=== PATIENT | male | born 1975 | race Native Hawaiian/Other Pacific Islander ===

== ENCOUNTER 2017-10-09 08:29 | Day surgery (SDC) | payer MEDICAID ==
[~2017-10-09] VITALS: Ht 152.4 cm; Wt 56.8 kg
[~2017-10-09 08:29] MED LIST: AMLO5TAB PO; COL100C PO; COLC0.6T69 PO; CYPR4TAB34 PO; DICL25TA2 PO; DIPH-423 PO; ESCI5TAB PO; HYDR-3686 PO; HYDR-565 PO; LOSA50TA3 PO; METO100T14 PO; ONDA4TAB12 PO; PHO667C PO; PRED5TAB PO; TACR0.5C20 PO
[2017-10-09 08:50] VITALS: BP 139/94
[2017-10-09] MEDS ORDERED: normal saline 1000ml 1,000 ML IV PRN (08:50)
[2017-10-09] MEDS ORDERED: albumin (human) 25% 100 ML IV solution IV PRN (08:50)
[2017-10-09 09:11] VITALS: BP 150/125
[2017-10-09 09:15] VITALS: BP 124/91
[2017-10-09 09:30] VITALS: BP 131/92
[2017-10-09 09:35] VITALS: BP 134/71
== END 2017-10-09 09:55 | disposition home or self-care (01) ==
LOC: SSTAY O 08:29
PROVIDERS: ATTEND Radiology Vascular & Interventional Radiology
DX: R18.8 Other ascites (principal); I12.0 Hypertensive chronic kidney disease with stage 5 chronic kidney disease or end stage renal disease; N18.6 End stage renal disease; Z88.1 Allergy status to other antibiotic agents; Z99.2 Dependence on renal dialysis; Z94.0 Kidney transplant status; Z98.890 Other specified postprocedural states; Z91.048 Other nonmedicinal substance allergy status; Z91.040 Latex allergy status; Z79.899 Other long term (current) drug therapy
CPT/HCPCS: 49083; A6257; J7030

== ENCOUNTER → 2018-05-04 | Outpatient (CLI) | payer MEDICAID ==
[~2018-05-04] MED LIST changes: -CYPR4TAB34 PO; +CYPR4TAB44 PO
== END | disposition home or self-care (01) ==
LOC: CARD DIAG 14:13
PROVIDERS: ATTEND Internal Medicine Cardiovascular Disease
DX: I08.1 Rheumatic disorders of both mitral and tricuspid valves (principal); I11.0 Hypertensive heart disease with heart failure; I50.22 Chronic systolic (congestive) heart failure; I27.20 Pulmonary hypertension, unspecified; Z79.899 Other long term (current) drug therapy; Z87.891 Personal history of nicotine dependence
CPT/HCPCS: 93306

== ENCOUNTER 2018-09-08 02:35 | Emergency (ER) | payer MEDICAID ==
[~2018-09-08] VITALS: Ht 152.4 cm; Wt 66.0 kg
[~2018-09-08 02:35] MED LIST changes: +ALLO100T PO; -AMLO5TAB PO; +BACL10TA PO; +CETI10TA14 PO; +CINA30TA PO; -COLC0.6T69 PO; -DICL25TA2 PO; -DIPH-423 PO; +FLUO20CA39 PO; -HYDR-565 PO; -LOSA50TA3 PO; +METO-411 PO; +OMEP40CA37 PO; -PRED5TAB PO; +SACU1TAB4 PO
[2018-09-08 03:13] LABS: ALANINE AMINOTRANSFERASE 23 U/L (12-78); ALBUMIN 3.6 G/DL (3.4-5.0); ALBUMIN/GLOBULIN RATIO 0.7 (1.1-1.5); ALKALINE PHOSPHATASE 273 IU/L (46-116); ANION GAP 16 (8-16); ASPARTATE AMINO TRANSFERASE 16 U/L (10-37); BILIRUBIN,TOTAL 0.9 MG/DL (0.1-1.0); BLOOD UREA NITROGEN 60 MG/DL (7-18); BUN/CREATININE RATIO 7.2 (5.4-32.0); CHLORIDE 97 MMOL/L (99-107); CREATININE 8.31 MG/DL (0.60-1.10); GLUCOSE 106 MG/DL (70-104); POTASSIUM 5.6 MMOL/L (3.5-5.1); SODIUM 136 MMOL/L (135-145); TOTAL CARBON DIOXIDE 23.2 MMOL/L (24-32); TOTAL PROTEIN 8.8 G/DL (6.4-8.2); eGFR 7 ML/MIN
[2018-09-08] MEDS ORDERED: HYDROcodone/acetaminophen 5mg/325mg tablet PO ONE (03:25)
[2018-09-08 03:37] LABS: BASOPHILS % (AUTO) 0.6 % (0-1); EOSINOPHILS # (AUTO) 0.5 X10'3 (0-0.9); EOSINOPHILS % (AUTO) 7.7 % (0-6); HEMATOCRIT 40.1 % (42.0-52.0); HEMOGLOBIN 12.8 g/dl (14.0-17.9); MEAN CORPUSCULAR HEMOGLOBIN 27.1 PG (27.0-31.0); MEAN CORPUSCULAR HGB CONC 31.9 % (33.0-36.5); MEAN CORPUSCULAR VOLUME 84.9 FL (78-98); MEAN PLATELET VOLUME 9.1 FL (7.4-10.4); MONOCYTES # (AUTO) 0.5 X10'3 (0-0.9); MONOCYTES % (AUTO) 7.4 % (2-12); NEUTROPHILS # (AUTO) 3.6 X10'3 (1.8-7.7); NEUTROPHILS % (AUTO) 54.3 % (42-75); PLATELET COUNT 177 X10'3 (140-440); RED BLOOD COUNT 4.72 X10'6 (4.70-6.10); RED CELL DISTRIBUTION WIDTH 15.8 % (11.5-14.5); WHITE BLOOD COUNT 6.7 X10'3 (4.5-11.0)
[2018-09-08 04:03] LABS: LIPASE 435 U/L (73-393)
[2018-09-08 04:45] VITALS: BP 126/86
== END 2018-09-08 05:26 | disposition home or self-care (01) ==
LOC: ER 02:35
DX: R10.84 Generalized abdominal pain (principal); I13.2 Hypertensive heart and chronic kidney disease with heart failure and with stage 5 chronic kidney disease, or end stage renal disease; I50.9 Heart failure, unspecified; N18.6 End stage renal disease; Z94.0 Kidney transplant status; Z99.2 Dependence on renal dialysis; Z98.890 Other specified postprocedural states; Z56.0 Unemployment, unspecified; Z88.1 Allergy status to other antibiotic agents; Z91.040 Latex allergy status; Z91.048 Other nonmedicinal substance allergy status
CPT/HCPCS: 36415; 74176; 80053; 83690; 85025; 99284

== ENCOUNTER 2019-01-14 12:05 | Outpatient (CLI) | payer MEDICAID | END 2019-01-14 23:59 | disposition home or self-care (01) | LOC: CARD DIAG 12:05 | PROVIDERS: ATTEND Internal Medicine Cardiovascular Disease | DX: I08.8 Other rheumatic multiple valve diseases (principal); I11.0 Hypertensive heart disease with heart failure; I50.20 Unspecified systolic (congestive) heart failure; Z91.040 Latex allergy status; Z88.8 Allergy status to other drugs, medicaments and biological substances | CPT/HCPCS: 93306 ==

== ENCOUNTER 2019-10-07 06:15 | Day surgery (SDC) | payer MEDICAID ==
[~2019-10-07] VITALS: Ht 152.4 cm; Wt 61.3 kg
[~2019-10-07 06:15] MED LIST changes: +OMEP40CA13 PO; -OMEP40CA37 PO
[2019-10-07 06:30] VITALS: BP 124/84
[2019-10-07] MEDS ORDERED: normal saline 1000ml 1,000 ML IV PRN (06:30)
[2019-10-07] MEDS ORDERED: albumin 25% 100mL bottle x 1 IV PRN (06:30)
--- NOTE | 2019-10-07 08:20 | NUR ---
Hudson Bach ENTERTAINMENT MANAGER at bedside, no fluid, pt will reschedule as needed.
== END 2019-10-07 08:20 | disposition home or self-care (01) ==
LOC: SSTAY O 06:15
PROVIDERS: ATTEND Radiology Diagnostic Radiology
DX: R18.8 Other ascites (principal); Z53.8 Procedure and treatment not carried out for other reasons
CPT/HCPCS: 76705; J7030

== ENCOUNTER 2019-10-31 17:55 | Emergency (ER) | payer MEDICAID ==
[~2019-10-31] VITALS: Ht 152.4 cm; Wt 57.0 kg
[2019-10-31] MEDS ORDERED: ALBU8.5H8 IH (18:40)
[2019-10-31] MEDS ORDERED: PRED20TA PO (18:40)
[2019-10-31] MEDS ORDERED: DOXY-1 PO (18:40)
[2019-10-31] MEDS ORDERED: BENZ-16 PO (18:40)
[2019-10-31 19:03] VITALS: BP 107/66
== END 2019-10-31 19:04 | disposition home or self-care (01) ==
LOC: ER 17:56
DX: J18.9 Pneumonia, unspecified organism (principal); I13.2 Hypertensive heart and chronic kidney disease with heart failure and with stage 5 chronic kidney disease, or end stage renal disease; N18.6 End stage renal disease; Z99.2 Dependence on renal dialysis; Z94.0 Kidney transplant status; Z91.040 Latex allergy status; Z56.0 Unemployment, unspecified; Z88.1 Allergy status to other antibiotic agents; Z88.8 Allergy status to other drugs, medicaments and biological substances; Z79.2 Long term (current) use of antibiotics; Z79.899 Other long term (current) drug therapy
CPT/HCPCS: 71045; 99283

== ENCOUNTER 2019-11-16 10:02 | Emergency (ER) | payer MEDICAID ==
[~2019-11-16] VITALS: Ht 152.4 cm; Wt 54.5 kg
[~2019-11-16 10:02] MED LIST changes: +ALBU8.5H8 IH; +BENZ-16 PO
[2019-11-16] MEDS ORDERED: albuterol 2.5 MG/3 ML nebule NEB ONE (10:45)
--- NOTE | 2019-11-16 11:00 | NUR ---
Patient anuric, EDMD aware.
[2019-11-16 11:39] LABS: HEMOGLOBIN 10.5 g/dl (14.0-17.9); PLATELET COUNT 254 X10'3 (140-440)
[2019-11-16 11:41] LABS: HEMATOCRIT 31.6 % (42.0-52.0); MEAN CORPUSCULAR HEMOGLOBIN 27.6 PG (27.0-31.0); MEAN CORPUSCULAR HGB CONC 33.1 g/dL (33.0-36.5); MEAN CORPUSCULAR VOLUME 83.3 FL (78-98); MEAN PLATELET VOLUME 7.7 FL (7.4-10.4); RED BLOOD COUNT 3.79 X10'6 (4.70-6.10); RED CELL DISTRIBUTION WIDTH 16.1 % (11.5-14.5)
[2019-11-16 11:49] LABS: PARTIAL THROMBOPLASTIN TIME 36 SECONDS (22-32)
[2019-11-16 11:50] LABS: ALANINE AMINOTRANSFERASE 52 U/L (12-78); ALBUMIN 2.8 G/DL (3.4-5.0); ALBUMIN/GLOBULIN RATIO 0.5 (1.1-1.5); ALKALINE PHOSPHATASE 187 IU/L (46-116); ANION GAP 4 (8-16); ASPARTATE AMINO TRANSFERASE 72 U/L (10-37); BLOOD UREA NITROGEN 10 MG/DL (7-18); CALCIUM 8.8 MG/DL (8.5-10.1); CHLORIDE 101 MMOL/L (99-107); GLUCOSE 67 MG/DL (70-104); MAGNESIUM 1.8 MG/DL (1.5-2.4); POTASSIUM 3.8 MMOL/L (3.5-5.1); SODIUM 143 MMOL/L (135-145); TOTAL CARBON DIOXIDE 37.8 MMOL/L (24-32); TOTAL PROTEIN 8.1 G/DL (6.4-8.2)
[2019-11-16 11:57] LABS: CREATININE 3.31 MG/DL (0.60-1.10); eGFR 20 ML/MIN
[2019-11-16 12:00] LABS: ANISOCYTOSIS 1+; MICROCYTOSIS 1+; PLATELET ESTIMATE NORMAL; TOTAL CELLS COUNTED 100
[2019-11-16 12:01] LABS: HYPOCHROMASIA 1+; TARGET CELLS 1+
--- NOTE | 2019-11-16 12:08 | NUR ---
Dr. Gross notified of temperature.
[2019-11-16] MEDS ORDERED: acetaminophen 325mg tablet PO ONE (12:15)
--- NOTE | 2019-11-16 12:15 | NUR ---
Lab called with an Influenza A positive result for pt. Dr Gross made aware of result.
[2019-11-16 14:22] VITALS: BP 113/66
== END 2019-11-16 14:23 | disposition home or self-care (01) ==
LOC: ER 10:03
DX: J10.1 Influenza due to other identified influenza virus with other respiratory manifestations (principal); I11.0 Hypertensive heart disease with heart failure; I50.9 Heart failure, unspecified; M10.9 Gout, unspecified; Z99.2 Dependence on renal dialysis; Z94.0 Kidney transplant status; Z56.0 Unemployment, unspecified; Z91.040 Latex allergy status; Z88.1 Allergy status to other antibiotic agents; Z79.899 Other long term (current) drug therapy
CPT/HCPCS: 71045; 80053; 83605; 83735; 84145; 85025; 85610; 85730; 87040; 87502; 87503; 93005; 94640; 94760; 99285

== ENCOUNTER 2020-01-28 10:26 | Day surgery (SDC) | payer MEDICAID ==
[~2020-01-28] VITALS: Ht 152.4 cm; Wt 54.7 kg
[2020-01-28] VITALS (11 sets, daily range): BP systolic 128–151; BP diastolic 73–95
[2020-01-28] MEDS ORDERED: LORazepam 0.5 MG tablet PO PRN (10:45)
[2020-01-28] MEDS ORDERED: nitroGLYCERIN 0.4mg SUBLingual tab SL PRN (10:45)
[2020-01-28] MEDS ORDERED: normal saline 1,000 ML IV SCH (10:45)
[2020-01-28] MEDS ORDERED: diphenhydrAMINE 25mg capsule PO PRN (10:45)
[2020-01-28] MEDS ORDERED: CARV12.5 PO (11:14)
[2020-01-28] MEDS ORDERED: LORA-660 PO ×2 (11:16→11:17)
[2020-01-28] MEDS ORDERED: CETI-90 PO (11:30)
[2020-01-28] MEDS ORDERED: CALC667T6 PO (11:32)
[2020-01-28] MEDS ORDERED: LIDOcaine 1% (10mg/ml)w/preservative injection 20ml MDV ONE (12:07)
[2020-01-28] MEDS ORDERED: iohexol 350 MG/ML 50ML vial IV ONE (12:07)
[2020-01-28] MEDS ORDERED: fentaNYL/PF 50MCG/1 ML 2ML syringe ONE (12:07)
[2020-01-28] MEDS ORDERED: midazolam 2 mg/2 ml injection ONE (12:07)
[2020-01-28] MEDS ORDERED: iohexol 350MG/ML 100ml bottle IV ONE (12:08)
[2020-01-28 12:31] LABS: HEMOGLOBIN 10.9 g/dl (14.0-17.9); MEAN CORPUSCULAR HGB CONC 31.8 g/dL (33.0-36.5); WHITE BLOOD COUNT 4.8 X10'3 (4.5-11.0)
[2020-01-28 12:33] LABS: HEMATOCRIT 34.3 % (42.0-52.0); MEAN CORPUSCULAR HEMOGLOBIN 27.4 PG (27.0-31.0); MEAN PLATELET VOLUME 8.4 FL (7.4-10.4); PLATELET COUNT 144 X10'3 (140-440); RED BLOOD COUNT 3.99 X10'6 (4.70-6.10); RED CELL DISTRIBUTION WIDTH 17.9 % (11.5-14.5)
[2020-01-28 12:34] LABS: ALBUMIN 2.7 G/DL (3.4-5.0); ANION GAP 6 (8-16); BLOOD UREA NITROGEN 19 MG/DL (7-18); BUN/CREATININE RATIO 4.3 (5.4-32.0); CALCIUM 8.7 MG/DL (8.5-10.1); CHLORIDE 102 MMOL/L (99-107); CREATININE 4.37 MG/DL (0.60-1.10); GLUCOSE 76 MG/DL (70-104); POTASSIUM 3.4 MMOL/L (3.5-5.1); SODIUM 141 MMOL/L (135-145); TOTAL CARBON DIOXIDE 33.1 MMOL/L (24-32); eGFR 15 ML/MIN
[2020-01-28 13:17] LABS: TOTAL CELLS COUNTED 100
[2020-01-28 13:18] LABS: ANISOCYTOSIS 1+; PLATELET ESTIMATE NORMAL
[2020-01-28 13:19] LABS: TARGET CELLS 1+
[2020-01-28 13:20] LABS: HYPOCHROMASIA 1+
[2020-01-28] MEDS ORDERED: acetaminophen 325mg tablet PO PRN (13:30)
[2020-01-28] MEDS ORDERED: HYDROcodone/acetaminophen 10/325mg tab PO PRN (13:30)
[2020-01-28] MEDS ORDERED: proCHLORperazine 10 MG/2 ml inj IV PRN (13:30)
[2020-01-28] MEDS ORDERED: ondansetron/PF 4mg/2ml inj IV PRN (13:30)
[2020-01-28] MEDS ORDERED: OXAZEpam 15mg capsule PO PRN (13:30)
[2020-01-28] MEDS ORDERED: HYDROcodone/acetaminophen 5mg/325mg tablet PO PRN (13:30)
== END 2020-01-28 18:00 | disposition home or self-care (01) ==
LOC: U 10:26 → MED 3N 10:26 → U 18:00
PROVIDERS: ATTEND Internal Medicine Cardiovascular Disease
DX: R94.39 Abnormal result of other cardiovascular function study (principal); N19 Unspecified kidney failure; I10 Essential (primary) hypertension; I42.8 Other cardiomyopathies; E78.5 Hyperlipidemia, unspecified; Z87.891 Personal history of nicotine dependence; Z99.2 Dependence on renal dialysis; Z79.899 Other long term (current) drug therapy
CPT/HCPCS: 36415; 71046; 80048; 85025; 85610; 93458; 99152; C1769; J1644; J2001; J2250; J3010; J7030; Q0163; Q9967; 76937; A4620; A6258; C1760

== ENCOUNTER 2020-04-13 06:44 | Emergency (ER) | payer MEDICAID ==
[~2020-04-13] VITALS: Ht 152.4 cm; Wt 56.4 kg
[~2020-04-13 06:44] MED LIST changes: -ALBU8.5H8 IH; -BACL10TA PO; -BENZ-16 PO; +CALC667T6 PO; +CARV12.5 PO; +CETI-90 PO; -CETI10TA14 PO; -COL100C PO; -FLUO20CA39 PO; +LORA-660 PO; -METO-411 PO; -METO100T14 PO; -ONDA4TAB12 PO; -PHO667C PO
[2020-04-13 08:16] LABS: HEMOGLOBIN 9.7 g/dl (14.0-17.9); MEAN PLATELET VOLUME 9.1 FL (7.4-10.4); PLATELET COUNT 130 X10'3 (140-440)
[2020-04-13 08:17] LABS: ALANINE AMINOTRANSFERASE 11 U/L (12-78); ALBUMIN 2.7 G/DL (3.4-5.0); ALBUMIN/GLOBULIN RATIO 0.4 (1.1-1.5); ALKALINE PHOSPHATASE 156 IU/L (46-116); ANION GAP 8 (8-16); ASPARTATE AMINO TRANSFERASE 19 U/L (10-37); BILIRUBIN,TOTAL 1.7 MG/DL (0.1-1.0); BLOOD UREA NITROGEN 52 MG/DL (7-18); BUN/CREATININE RATIO 6.1 (5.4-32.0); CALCIUM 8.8 MG/DL (8.5-10.1); CHLORIDE 99 MMOL/L (99-107); CREATININE 8.48 MG/DL (0.60-1.10); GLUCOSE 96 MG/DL (70-104); MAGNESIUM 2.3 MG/DL (1.5-2.4); PHOSPHORUS 4.9 MG/DL (2.3-4.5); POTASSIUM 4.4 MMOL/L (3.5-5.1); SODIUM 138 MMOL/L (135-145); TOTAL CARBON DIOXIDE 30.9 MMOL/L (24-32); TOTAL PROTEIN 8.9 G/DL (6.4-8.2); eGFR 7 ML/MIN
[2020-04-13 08:18] LABS: HEMATOCRIT 29.3 % (42.0-52.0); MEAN CORPUSCULAR HEMOGLOBIN 28.9 PG (27.0-31.0); MEAN CORPUSCULAR VOLUME 87.5 FL (78-98); RED BLOOD COUNT 3.34 X10'6 (4.70-6.10); RED CELL DISTRIBUTION WIDTH 16.8 % (11.5-14.5); WHITE BLOOD COUNT 5.3 X10'3 (4.5-11.0)
[2020-04-13] MEDS ORDERED: lactulose 20gm/30ml cup PO ONE (09:20)
[2020-04-13] MEDS ORDERED: AMOX-101 PO (09:29)
[2020-04-13 09:52] VITALS: BP 146/101
[2020-04-13 10:08] LABS: TOTAL CELLS COUNTED 100
[2020-04-13 10:12] LABS: ANISOCYTOSIS 1+; HYPOCHROMASIA 1+; PLATELET ESTIMATE DECREASED; TARGET CELLS 1+
== END 2020-04-13 09:54 | disposition home or self-care (01) ==
LOC: ER 06:45
DX: R60.9 Edema, unspecified (principal); I13.2 Hypertensive heart and chronic kidney disease with heart failure and with stage 5 chronic kidney disease, or end stage renal disease; N18.6 End stage renal disease; I50.9 Heart failure, unspecified; H66.92 Otitis media, unspecified, left ear; Z99.2 Dependence on renal dialysis; Z94.0 Kidney transplant status; Z91.040 Latex allergy status; Z88.1 Allergy status to other antibiotic agents; Z91.048 Other nonmedicinal substance allergy status; Z79.2 Long term (current) use of antibiotics; Z79.899 Other long term (current) drug therapy; Z56.0 Unemployment, unspecified
CPT/HCPCS: 71045; 80053; 83735; 84100; 85025; 99285

== ENCOUNTER 2020-05-01 06:13 | Day surgery (SDC) | payer MEDICAID ==
[~2020-05-01] VITALS: Ht 152.4 cm; Wt 58.2 kg
[~2020-05-01 06:13] MED LIST changes: +AMOX-101 PO
[2020-05-01 06:30] VITALS: BP 108/74
[2020-05-01] MEDS ORDERED: normal saline 1000ml 1,000 ML IV PRN (06:30)
[2020-05-01] MEDS ORDERED: albumin 25% 100mL bottle x 1 IV PRN (06:30)
[2020-05-01 08:10] VITALS: BP 107/79
[2020-05-01 08:20] VITALS: BP 107/79
== END 2020-05-01 08:20 | disposition home or self-care (01) ==
LOC: SSTAY O 06:13
PROVIDERS: ATTEND Radiology Vascular & Interventional Radiology
DX: R18.8 Other ascites (principal); I13.0 Hypertensive heart and chronic kidney disease with heart failure and stage 1 through stage 4 chronic kidney disease, or unspecified chronic kidney disease; I50.9 Heart failure, unspecified; N18.9 Chronic kidney disease, unspecified; Z99.2 Dependence on renal dialysis; Z94.0 Kidney transplant status; M10.9 Gout, unspecified; Z91.040 Latex allergy status; Z88.5 Allergy status to narcotic agent; Z88.8 Allergy status to other drugs, medicaments and biological substances; Z79.899 Other long term (current) drug therapy
CPT/HCPCS: 76705

== ENCOUNTER 2020-07-27 09:57 | Emergency (ER) | payer MEDICAID ==
[~2020-07-27] VITALS: Ht 152.4 cm; Wt 59.9 kg
[~2020-07-27 09:57] MED LIST changes: -AMOX-101 PO
[2020-07-27] MEDS ORDERED: acetaminophen 325mg tablet PO ONE (10:15)
[2020-07-27] MEDS ORDERED: morphine 4 MG/ML inj SYRINge IM ONE (10:50)
[2020-07-27 11:00] VITALS: BP 159/88
--- NOTE | 2020-07-27 11:22 | NUR ---
CALL TO LAB AT THIS TIME FOR LAB DRAW, GOLF [employer]ALL TRIMMER CASEY MADE AWARE BLOOD NEEDED.
[2020-07-27 11:51] LABS: BASOPHILS # (AUTO) 0.1 X10'3 (0-0.2); BASOPHILS % (AUTO) 0.7 % (0-1); EOSINOPHILS # (AUTO) 0.4 X10'3 (0-0.9); EOSINOPHILS % (AUTO) 5.7 % (0-6); HEMATOCRIT 25.6 % (42.0-52.0); HEMOGLOBIN 8.5 g/dl (14.0-17.9); LYMPHOCYTES # (AUTO) 0.5 X10'3 (1.1-4.8); LYMPHOCYTES % (AUTO) 7.7 % (21-51); MEAN CORPUSCULAR HEMOGLOBIN 29.6 PG (27.0-31.0); MEAN CORPUSCULAR VOLUME 89.8 FL (78-98); MEAN PLATELET VOLUME 8.1 FL (7.4-10.4); MONOCYTES # (AUTO) 0.8 X10'3 (0-0.9); MONOCYTES % (AUTO) 11.2 % (2-12); NEUTROPHILS # (AUTO) 5.3 X10'3 (1.8-7.7); NEUTROPHILS % (AUTO) 74.7 % (42-75); PLATELET COUNT 157 X10'3 (140-440); RED BLOOD COUNT 2.86 X10'6 (4.70-6.10); RED CELL DISTRIBUTION WIDTH 17.1 % (11.5-14.5); WHITE BLOOD COUNT 7.1 X10'3 (4.5-11.0)
[2020-07-27 12:07] LABS: ALANINE AMINOTRANSFERASE 15 U/L (12-78); ALBUMIN 2.6 G/DL (3.4-5.0); ALBUMIN/GLOBULIN RATIO 0.4 (1.1-1.5); ALKALINE PHOSPHATASE 230 IU/L (46-116); ANION GAP 11 (8-16); ASPARTATE AMINO TRANSFERASE 25 U/L (10-37); BILIRUBIN,TOTAL 1.9 MG/DL (0.1-1.0); BLOOD UREA NITROGEN 20 MG/DL (7-18); BUN/CREATININE RATIO 5.7 (5.4-32.0); CALCIUM 8.9 MG/DL (8.5-10.1); CHLORIDE 100 MMOL/L (99-107); CREATININE 3.48 MG/DL (0.60-1.10); GLUCOSE 76 MG/DL (70-104); POTASSIUM 3.3 MMOL/L (3.5-5.1); SODIUM 137 MMOL/L (135-145); TOTAL CARBON DIOXIDE 26.1 MMOL/L (24-32); eGFR 19 ML/MIN
[2020-07-27 12:27] LABS: TOTAL CELLS COUNTED 100
[2020-07-27 12:29] LABS: ANISOCYTOSIS 1+
[2020-07-27 12:30] LABS: ELLIPTOCYTES FEW; TARGET CELLS 2+
[2020-07-27 12:31] LABS: POLYCHROMASIA FEW
[2020-07-27 12:32] LABS: HYPOCHROMASIA 2+
[2020-07-27 12:33] LABS: LARGE PLATELETS FEW; PLATELET ESTIMATE NORMAL
[2020-07-27 12:34] LABS: TOXIC VACUOLATION FEW
--- NOTE | 2020-07-27 14:28 | NUR ---
CALL TO [facility] FOR TRANSPORTATION, ETA 30-45 MIN.
== END 2020-07-27 15:07 | disposition home or self-care (01) ==
LOC: ER 09:57
DX: L03.113 Cellulitis of right upper limb (principal); I13.0 Hypertensive heart and chronic kidney disease with heart failure and stage 1 through stage 4 chronic kidney disease, or unspecified chronic kidney disease; N18.9 Chronic kidney disease, unspecified; I50.89 Other heart failure; Z56.0 Unemployment, unspecified; Z88.1 Allergy status to other antibiotic agents; Z88.8 Allergy status to other drugs, medicaments and biological substances; Z91.040 Latex allergy status; Z79.899 Other long term (current) drug therapy
CPT/HCPCS: 36415; 71045; 80053; 83605; 84145; 84484; 85007; 85025; 87040; 87070; 87635; 96372; 99284; C9803; J2270; 87077; 87186

== ENCOUNTER 2020-08-14 08:59 | Outpatient (CLI) | payer MEDICAID ==
[~2020-08-14 08:59] MED LIST changes: +LORA-657 PO; -LORA-660 PO
== END 2020-08-14 23:59 | disposition home or self-care (01) ==
LOC: LAB 08:59
DX: Z53.21 Procedure and treatment not carried out due to patient leaving prior to being seen by health care provider (principal)

== ENCOUNTER 2021-02-12 14:18 | Outpatient (CLI) | payer MEDICAID | END 2021-02-12 23:59 | disposition home or self-care (01) | LOC: CARD DIAG 14:18 | PROVIDERS: ATTEND Internal Medicine Cardiovascular Disease | DX: I08.8 Other rheumatic multiple valve diseases (principal); I50.22 Chronic systolic (congestive) heart failure | CPT/HCPCS: 93306 ==

== ENCOUNTER 2021-03-31 09:54 | Outpatient (CLI) | payer MEDICAID ==
[~2021-03-31 09:54] MED LIST changes: -OMEP40CA13 PO; +OMEP40CA21 PO
== END 2021-03-31 23:59 | disposition home or self-care (01) ==
LOC: LAB 09:54
DX: N18.6 End stage renal disease (principal)
CPT/HCPCS: 36415

== ENCOUNTER 2021-07-12 09:46 | Outpatient (CLI) | payer MEDICAID | END 2021-07-12 23:59 | disposition home or self-care (01) | LOC: CARD DIAG 09:46 | PROVIDERS: ATTEND Internal Medicine Cardiovascular Disease | DX: I34.0 Nonrheumatic mitral (valve) insufficiency (principal) | CPT/HCPCS: 93306 ==

== ENCOUNTER 2022-04-11 11:53 | Outpatient (CLI) | payer MEDICAID | END 2022-04-11 23:59 | disposition home or self-care (01) | LOC: CARD DIAG 11:53 | PROVIDERS: ATTEND Internal Medicine Cardiovascular Disease | DX: Z01.818 Encounter for other preprocedural examination (principal); I08.3 Combined rheumatic disorders of mitral, aortic and tricuspid valves; I11.0 Hypertensive heart disease with heart failure; I50.9 Heart failure, unspecified | CPT/HCPCS: 93306 ==

== ENCOUNTER 2023-05-24 12:05 | Emergency (ER) | payer MEDICAID ==
[~2023-05-24] VITALS: Ht 152.4 cm; Wt 59.1 kg
[2023-05-24 12:35] LABS: HEMATOCRIT 28.6 % (42.0-52.0); HEMOGLOBIN 9.3 g/dl (14.0-17.9); MEAN CORPUSCULAR HGB CONC 32.6 g/dL (33.0-36.5); MEAN PLATELET VOLUME 9.1 FL (7.4-10.4); PLATELET COUNT 128 X10'3 (140-440); RED BLOOD COUNT 3.21 X10'6 (4.70-6.10); RED CELL DISTRIBUTION WIDTH 17.3 % (11.5-14.5)
[2023-05-24 12:42] VITALS: TEMP 97.9
[2023-05-24 13:20] LABS: PLATELET ESTIMATE DECREASED; TOTAL CELLS COUNTED 100
[2023-05-24 13:22] LABS: ANISOCYTOSIS 1+
[2023-05-24 14:16] LABS: ALANINE AMINOTRANSFERASE 16 U/L (12-78); ALBUMIN 2.8 G/DL (3.4-5.0); ALBUMIN/GLOBULIN RATIO 0.5 (1.1-1.5); ALKALINE PHOSPHATASE 213 IU/L (46-116); ANION GAP 11 (8-16); ASPARTATE AMINO TRANSFERASE 34 U/L (10-37); BILIRUBIN,TOTAL 0.9 MG/DL (0.1-1.0); BLOOD UREA NITROGEN 59 MG/DL (7-18); CALCIUM 7.8 MG/DL (8.5-10.1); CHLORIDE 101 MMOL/L (99-107); CREATININE 6.56 MG/DL (0.60-1.10); GLUCOSE 105 MG/DL (70-104); POTASSIUM 4.2 MMOL/L (3.5-5.1); SODIUM 138 MMOL/L (135-145); TOTAL CARBON DIOXIDE 25.8 MMOL/L (24-32); TOTAL PROTEIN 8.3 G/DL (6.4-8.2); eCRCL 10 ML/MIN; eGFR 9 ML/MIN
[2023-05-24 14:19] LABS: PRO BRAIN NATRIURETIC PEPTIDE > 30000 PG/ML (0-125)
--- NOTE | 2023-05-24 18:24 | NUR ---
MADE AWARE OF PTS BNP <[id number]. NO NEW ORDERS
[2023-05-24] MEDS ORDERED: neomy sulf/polymyx B sulf/HC otic soln 10ml LEFT EAR SCH (18:25)
[2023-05-24 18:38] VITALS: BP 131/98; PULSE 78; RESP 16; O2SAT 99
== END 2023-05-24 18:39 | disposition home or self-care (01) ==
LOC: ER 12:06
DX: R07.9 Chest pain, unspecified (principal); Z20.822 Contact with and (suspected) exposure to COVID-19; I11.0 Hypertensive heart disease with heart failure; Z79.899 Other long term (current) drug therapy
CPT/HCPCS: 36415; 71045; 80053; 83880; 84484; 85007; 85025; 87502; 87503; 87811; 93005; 99285

== ENCOUNTER 2023-06-02 08:32 | Day surgery (SDC) | payer MEDICAID ==
[~2023-06-02] VITALS: Ht 152.4 cm; Wt 56.4 kg
[2023-06-02 08:45] VITALS: BP 119/99; PULSE 70; RESP 16; TEMP 98.6; O2SAT 96
[2023-06-02] MEDS ORDERED: albumin 25% 100mL bottle x 1 IV PRN (08:55)
[2023-06-02] MEDS ORDERED: DIPH-735 PO (09:05)
[2023-06-02] MEDS ORDERED: PANT40TA54 PO (09:05)
[2023-06-02] MEDS ORDERED: ZINC220C12 (09:05)
[2023-06-02] MEDS ORDERED: ONDA8TAB13 PO (09:06)
[2023-06-02] MEDS ORDERED: PATI8.4P (09:06)
[2023-06-02] MEDS ORDERED: SACU1TAB7 (09:07)
[2023-06-02] MEDS ORDERED: KEN0.1O TP (09:10)
[2023-06-02] MEDS ORDERED: KIONEX (09:10)
[2023-06-02 10:40] VITALS: BP 121/79; PULSE 69; RESP 16; O2SAT 94
[2023-06-02 10:45] VITALS: BP 115/63; PULSE 68; RESP 16; O2SAT 95
[2023-06-02 11:00] VITALS: BP 118/79; PULSE 68; RESP 14; O2SAT 96
[2023-06-02 11:15] VITALS: BP 131/86; PULSE 70; RESP 12; O2SAT 96
[2023-06-02 11:30] VITALS: BP 134/87; PULSE 72; RESP 14; O2SAT 95
== END 2023-06-02 11:35 | disposition home or self-care (01) ==
LOC: SSTAY O 08:32
PROVIDERS: ATTEND Radiology Vascular & Interventional Radiology
DX: J90 Pleural effusion, not elsewhere classified (principal); I13.2 Hypertensive heart and chronic kidney disease with heart failure and with stage 5 chronic kidney disease, or end stage renal disease; I50.9 Heart failure, unspecified; N18.6 End stage renal disease; M10.9 Gout, unspecified; Z88.8 Allergy status to other drugs, medicaments and biological substances; Z88.1 Allergy status to other antibiotic agents; Z91.040 Latex allergy status; Z94.0 Kidney transplant status; Z99.2 Dependence on renal dialysis; Z79.899 Other long term (current) drug therapy
CPT/HCPCS: 32555; C1729; J3490

== ENCOUNTER → 2023-10-09 | Outpatient (CLI) | payer MEDICAID ==
[~2023-10-09] MED LIST changes: -CALC667T6 PO; +DIPH-735 PO; +KEN0.1O TP; +KIONEX; -LORA-657 PO; -OMEP40CA21 PO; +ONDA8TAB13 PO; +PANT40TA54 PO; +PATI8.4P; -SACU1TAB4 PO; +SACU1TAB7; +ZINC220C12
== END | disposition home or self-care (01) ==
LOC: CARD DIAG 13:33
PROVIDERS: ATTEND Nurse Practitioner Adult Health
DX: I08.8 Other rheumatic multiple valve diseases (principal); I50.9 Heart failure, unspecified
CPT/HCPCS: 93306

== ENCOUNTER 2024-10-20 00:24 | Inpatient (IN) | payer MEDICAID ==
[~2024-10-20] VITALS: Ht 152.4 cm; Wt 58.0 kg
[~2024-10-20 00:24] MED LIST changes: +ONDA-245 PO; -ONDA8TAB13 PO
[2024-10-20 01:08] LABS: BASOPHILS # (AUTO) 0.1 X10'3 (0-0.2); BASOPHILS % (AUTO) 0.9 % (0-1); EOSINOPHILS # (AUTO) 0.5 X10'3 (0-0.9); EOSINOPHILS % (AUTO) 8.3 % (0-6); HEMATOCRIT 36.6 % (42.0-52.0); LYMPHOCYTES # (AUTO) 1.3 X10'3 (1.1-4.8); LYMPHOCYTES % (AUTO) 20.9 % (21-51); MEAN CORPUSCULAR HEMOGLOBIN 27.6 PG (27.0-31.0); MEAN CORPUSCULAR HGB CONC 32.7 g/dL (33.0-36.5); MEAN CORPUSCULAR VOLUME 84.3 FL (78-98); MEAN PLATELET VOLUME 8.2 FL (7.4-10.4); MONOCYTES # (AUTO) 0.6 X10'3 (0-0.9); MONOCYTES % (AUTO) 9.5 % (2-12); NEUTROPHILS # (AUTO) 3.8 X10'3 (1.8-7.7); NEUTROPHILS % (AUTO) 60.4 % (42-75); PLATELET COUNT 172 X10'3 (140-440); RED BLOOD COUNT 4.34 X10'6 (4.70-6.10); RED CELL DISTRIBUTION WIDTH 15.5 % (11.5-14.5); WHITE BLOOD COUNT 6.3 X10'3 (4.5-11.0)
[2024-10-20 01:18] LABS: ALANINE AMINOTRANSFERASE 10 U/L (12-78); ALBUMIN 3.6 G/DL (3.4-5.0); ALBUMIN/GLOBULIN RATIO 0.6 (1.1-1.5); ALKALINE PHOSPHATASE 200 IU/L (46-116); ANION GAP 14 (8-16); ASPARTATE AMINO TRANSFERASE 14 U/L (10-37); BLOOD UREA NITROGEN 25 MG/DL (7-18); BUN/CREATININE RATIO 3.6 (10.0-20.0); CALCIUM 8.2 MG/DL (8.5-10.1); CHLORIDE 90 MMOL/L (99-107); CREATININE 6.89 MG/DL (0.60-1.10); GLUCOSE 154 MG/DL (70-104); LIPASE 98 U/L (16-77); POTASSIUM 4.4 MMOL/L (3.5-5.1); SODIUM 135 MMOL/L (135-145); TOTAL CARBON DIOXIDE 31.4 MMOL/L (24-32); TOTAL PROTEIN 9.7 G/DL (6.4-8.2); eCRCL 10 ML/MIN; eGFR 9 ML/MIN
[2024-10-20] MEDS: morphine 4 MG/ML inj SYRINge IV ONE (01:57)
[2024-10-20] MEDS: ondansetron/PF 4mg/2ml inj IV ONE (01:58)
[2024-10-20] MEDS: piperacillin/tazo 3.375gm/50ml 50 ML IV STA (04:01)
[2024-10-20] MEDS: LIDOcaine 1% W/epiNEPHrine 1:100,000 20ml vial SQ ONE (04:35)
[2024-10-20] MEDS ORDERED: NORepinephrine 32mg/250mL bag 250 ML IV ONE (04:40)
[2024-10-20] MEDS ORDERED: NORepinephrine 8mg/ 250ml NS 250 ML IV PRN (04:50)
[2024-10-20] MEDS ORDERED: NORepinephrine 8mg/ 250ml NS 250 ML IV SCH (04:50)
[2024-10-20] MEDS: NORepinephrine 32 MG in normal saline 250ml IV soln 218 ML IV PRN (05:46)
[2024-10-20] MEDS: albumin (human) 25% 100 ML IV solution IV ONE ×2 (07:55→09:52)
[2024-10-20] MEDS: normal saline 1000ml 1,000 ML IV SCH (07:55)
[2024-10-20] MEDS: LidoCAINE 2% Topical Jelly 11mL syringe (UROJET) TOP ONE ×3 (07:55→09:17)
[2024-10-20] MEDS ORDERED: pantoprazole 40MG/NS 100ML BAG 100 ML IV SCH (08:00)
[2024-10-20] MEDS: pantoprazole 40 MG vial IV SCH (08:03)
[2024-10-20] MEDS: metroNIDAZOLE-Flagyl 500mg/NS 100 ML IV SCH (08:03)
[2024-10-20] MEDS: cefepime 1GM in D5W 50mL 50 ML IV SCH (09:29)
[2024-10-20] MEDS: morphine 4 MG/ML inj SYRINge IV PRN (09:29)
[2024-10-20] MEDS: LIDOcaine 2% Viscous 15ml cup MM PRN (15:36)
[2024-10-20 18:00] VITALS: BP 104/70; PULSE 81; RESP 22; TEMP 98.8; O2SAT 96
[2024-10-20] MEDS: ondansetron/PF 4mg/2ml inj IV PRN (19:37)
[2024-10-20 19:39] VITALS: BP 103/60; PULSE 85; RESP 18; O2SAT 96
[2024-10-20] MEDS: triamcinolone acet 0.1% cream 15gm TP SCH (20:00)
[2024-10-20 22:00] VITALS: BP 100/52; PULSE 85; RESP 20; TEMP 99.1; O2SAT 94
[2024-10-20] MEDS: tacrolimus anhydrous 0.5mg capsule PO SCH (22:12)
[2024-10-21] VITALS (14 sets, daily range): BP systolic 101–127; BP diastolic 62–76; PULSE 80–87; RESP 14–20; TEMP 96.5–99.4; O2SAT 93–99
[2024-10-21 04:59] LABS: BASOPHILS % (AUTO) 0.3 % (0-1); EOSINOPHILS # (AUTO) 0.6 X10'3 (0-0.9); EOSINOPHILS % (AUTO) 10.3 % (0-6); HEMATOCRIT 29.5 % (42.0-52.0); HEMOGLOBIN 9.5 g/dl (14.0-17.9); LYMPHOCYTES # (AUTO) 1.5 X10'3 (1.1-4.8); LYMPHOCYTES % (AUTO) 26.8 % (21-51); MEAN CORPUSCULAR HEMOGLOBIN 27.3 PG (27.0-31.0); MEAN CORPUSCULAR VOLUME 85.1 FL (78-98); MEAN PLATELET VOLUME 7.9 FL (7.4-10.4); MONOCYTES # (AUTO) 0.5 X10'3 (0-0.9); MONOCYTES % (AUTO) 8.3 % (2-12); NEUTROPHILS % (AUTO) 54.3 % (42-75); PLATELET COUNT 120 X10'3 (140-440); RED BLOOD COUNT 3.47 X10'6 (4.70-6.10); RED CELL DISTRIBUTION WIDTH 15.8 % (11.5-14.5); WHITE BLOOD COUNT 5.6 X10'3 (4.5-11.0)
[2024-10-21 05:27] LABS: ALBUMIN 3.8 G/DL (3.4-5.0); ANION GAP 9 (8-16); BLOOD UREA NITROGEN 40 MG/DL (7-18); BUN/CREATININE RATIO 4.3 (10.0-20.0); CALCIUM 8.2 MG/DL (8.5-10.1); CHLORIDE 99 MMOL/L (99-107); CREATININE 9.41 MG/DL (0.60-1.10); GLUCOSE 89 MG/DL (70-104); MAGNESIUM 1.8 MG/DL (1.5-2.4); PHOSPHORUS 4.6 MG/DL (2.3-4.5); POTASSIUM 4.4 MMOL/L (3.5-5.1); SODIUM 139 MMOL/L (135-145); TOTAL CARBON DIOXIDE 31.1 MMOL/L (24-32); eCRCL 7 ML/MIN; eGFR 6 ML/MIN
[2024-10-21] MEDS: morphine 2 MG/ML inj. syringe IV PRN (05:36)
[2024-10-21] MEDS: ESCITALOPRAM 10 mg tablet 10 MG TABLET PO SCH (07:38)
[2024-10-21] MEDS: linezolid 600mg/300ml PREMIX 300 ML IV SCH (09:50)
[2024-10-21] MEDS: diatr meglu/diatrizoate 30ml oral sol.-(3 dose) bottle PO ONE (14:54)
[2024-10-21] MEDS: EPOETIN ALFA-EPBX 20,000 UNIT/ML 1 ML MDV IV ONE (15:05)
[2024-10-21] MEDS: heparin 1,000unit/ml 10ml vial 10 ML IV ONE (15:09)
[2024-10-21] MEDS: heparin 1,000 units/ml 10ml inj IV ONE (15:10)
[2024-10-21] MEDS: WATER FOR INJECTION STERILE IV SCH (22:00)
[2024-10-21] MEDS: [UNRECOGNIZED DRUG - OTHER] IV SCH (22:00)
[2024-10-21] MEDS: CEFEPIME IV SCH (22:00)
[2024-10-22] VITALS (19 sets, daily range): BP systolic 96–150; BP diastolic 54–89; PULSE 75–88; RESP 13–18; TEMP 97.6–99.8; O2SAT 95–98
[2024-10-22] MEDS: acetaminophen 325mg tablet PO PRN (01:31)
[2024-10-22] MEDS: hydrOXYzine 25 MG tablet PO PRN (01:36)
[2024-10-22 04:00] LABS: BASOPHILS % (AUTO) 0.5 % (0-1); EOSINOPHILS # (AUTO) 0.6 X10'3 (0-0.9); EOSINOPHILS % (AUTO) 14.5 % (0-6); HEMATOCRIT 28.5 % (42.0-52.0); HEMOGLOBIN 9.1 g/dl (14.0-17.9); LYMPHOCYTES # (AUTO) 1.1 X10'3 (1.1-4.8); LYMPHOCYTES % (AUTO) 24.9 % (21-51); MEAN CORPUSCULAR HEMOGLOBIN 27.3 PG (27.0-31.0); MEAN CORPUSCULAR VOLUME 85.4 FL (78-98); MEAN PLATELET VOLUME 8.2 FL (7.4-10.4); MONOCYTES # (AUTO) 0.5 X10'3 (0-0.9); NEUTROPHILS # (AUTO) 2.1 X10'3 (1.8-7.7); NEUTROPHILS % (AUTO) 48.1 % (42-75); PLATELET COUNT 114 X10'3 (140-440); RED BLOOD COUNT 3.34 X10'6 (4.70-6.10); RED CELL DISTRIBUTION WIDTH 15.2 % (11.5-14.5); WHITE BLOOD COUNT 4.4 X10'3 (4.5-11.0)
[2024-10-22 04:11] LABS: ALBUMIN 3.6 G/DL (3.4-5.0); ANION GAP 9 (8-16); BLOOD UREA NITROGEN 19 MG/DL (7-18); BUN/CREATININE RATIO 2.7 (10.0-20.0); CALCIUM 8.6 MG/DL (8.5-10.1); CHLORIDE 98 MMOL/L (99-107); CREATININE 7.15 MG/DL (0.60-1.10); GLUCOSE 86 MG/DL (70-104); MAGNESIUM 1.7 MG/DL (1.5-2.4); PHOSPHORUS 4.7 MG/DL (2.3-4.5); POTASSIUM 3.9 MMOL/L (3.5-5.1); SODIUM 136 MMOL/L (135-145); TOTAL CARBON DIOXIDE 28.8 MMOL/L (24-32); eCRCL 9 ML/MIN; eGFR 8 ML/MIN
[2024-10-22] MEDS ORDERED: PERFLUTREN PROTEIN-A MICROSPHR (Optison) 0.22 MG/ML 3ML VIAL IV ONE (09:55)
[2024-10-22] MEDS: EPOETIN ALFA-EPBX 20,000 UNIT/ML 1 ML MDV IV ONE (10:20)
[2024-10-22] MEDS ORDERED: albumin (human) 25% 100ml IV 100 ML IV PRN (10:20)
[2024-10-22] MEDS: heparin 1,000 units/ml 10ml inj IV ONE ×2 (10:25→14:14)
[2024-10-22 11:13] LABS: HBSAG SCREEN Negative (Negative); HEP B SURF AB Reactive (.)
[2024-10-22] MEDS: heparin 1,000unit/ml 10ml vial 10 ML IV ONE (14:14)
== END 2024-10-22 16:30 | disposition home or self-care (01) | DRG 247 ==
LOC: ER 00:25 → ED HOLD 09:03 → PCU 3S 17:45
PROVIDERS: ADMIT Internal Medicine Critical Care Medicine; ATTEND Internal Medicine Critical Care Medicine
PROC: 5A1D70Z Performance of Urinary Filtration, Intermittent, Less than 6 Hours Per Day (ICD-10-PCS; principal; 2024-10-21)
PROC: 5A1D70Z Performance of Urinary Filtration, Intermittent, Less than 6 Hours Per Day (ICD-10-PCS; 2024-10-22)
DX: K56.609 Unspecified intestinal obstruction, unspecified as to partial versus complete obstruction (principal); I13.2 Hypertensive heart and chronic kidney disease with heart failure and with stage 5 chronic kidney disease, or end stage renal disease; N18.6 End stage renal disease; I50.9 Heart failure, unspecified; I95.9 Hypotension, unspecified; Z99.2 Dependence on renal dialysis; Z88.1 Allergy status to other antibiotic agents; Z91.040 Latex allergy status; Z79.899 Other long term (current) drug therapy; Z82.5 Family history of asthma and other chronic lower respiratory diseases
CPT/HCPCS: 36415; 36556; 74176; 80048; 80053; 83605; 83690; 83735; 84100; 84145; 84484; 85025; 86706; 87040; 87081; 87340; 93005; 93306; 99291; A4615; A6258; A6402; A6449; C1751; E1594; G0257; G0378; J0692; J1644; J2020; J2270; J2405; J2470; J2543; J3490; J7030; J7040; J7050; J7507; P9047; Q0177; Q4081; Q9963